=== PATIENT | female | born 1935 | race Caucasian/White ===

== ENCOUNTER 2016-02-10 04:55 | Observation (INO) | payer OTHER ==
[2016-02-10 05:30] LABS: AUTOMATED BASOPHIL 1.1 % (0-2); AUTOMATED EOSINOPHIL 2.2 % (0-5); AUTOMATED LYMPH 38.7 % (17-44); AUTOMATED MONOCYTE 12.3 % (3-10); AUTOMATED NEUTROPHIL 45.7 % (45-76); MPV 8.2 fL (7.4-10.4)
[2016-02-10 05:40] LABS: BLOOD UREA NITROGEN 13 MG/DL (7-17); CALC CORRECTED 9.4 MG/DL (8.4-10.2); CALCIUM 9.3 MG/DL (8.4-10.2); CALCULATED OSMOLALITY 268 MOs/Kg (270-290); CHLORIDE 104 mEq/L (98-107); GLUCOSE 89 MG/DL (70-99); SODIUM LEVEL 140 mEq/L (137-146); TOTAL PROTEIN 7.2 G/DL (6.3-8.2)
[2016-02-10 05:52] LABS: PARTIAL THROMB. TIME 28.5 SEC (22-35); PT-INR 1.2
--- NOTE | 2016-02-10 05:54 | DIRPT ---
CLINICAL DATA: Chest pain radiating to RIGHT arm, shortness of breath and palpitations. EXAM: PORTABLE CHEST 1 VIEW COMPARISON: Chest radiograph October 22, 2014 FINDINGS: Cardiomediastinal silhouette is normal, calcified aortic knob no pleural effusion or focal consolidation. Apical calcified pleural plaques. Increased lung volumes suggest COPD without pleural effusion or focal consolidation. Dual lead LEFT cardiac pacemaker in situ. Soft tissue planes and included osseous structures are nonsuspicious. IMPRESSION: No acute cardiopulmonary process. Electronically Signed By: Nidia Bruno M.D. On: 02/10/2016 05:51
[2016-02-10] MEDS ORDERED: Pharmacy Review for Metformin - IV Contrast Given SCH (06:00)
--- NOTE | 2016-02-10 06:30 | EDPRACDOC ---
- General Information Information Source: Patient Mode of Arrival: Car - History of Present Illness Onset: 2 DAYS Chest Pain Location: Reports: Substernal Pain Radiation: Reports: Back, Jaw, Shoulder (L), Arm (L), Other (LEFT LEG) Symptoms Occur: Reports: Gradually, At Rest, With light exertion Cardiac Risk Factors: Reports: Hyperlipidemia, Hypertension Cardiac History of: Reports: Similar Pain in Past, Stress Test (REMOTE). Denies : Cardiac Cath Pain Status: Resolved (NEARLY) Pain Description: Reports: Pressure, Heavy, Aching Pain Severity: Mild Pain Worsens With: Reports: Nothing Pain Improves With: Reports: Nothing Associated Signs and Symptoms: Reports: Other (PALPITATIONS.) <Aissatou Vasquez - Last Filed: 02/10/16 06:28> <Hamida Ellis - Last Filed: 02/10/16 07:53> - General Information Chief Complaint: Chest Pain Stated Complaint: CHEST PAIN/LT ARM/JAW PAIN Time Seen by Provider: 02/10/16 05:06 Home Medications: Home Medications Levothyroxine Sodium [Synthroid] 50 mcg PO DAILY 05/12/13 Rivaroxaban [Xarelto] 15 mg PO DAILYWM #30 tablet 12/10/13 Flecainide [Tambocor] 50 mg PO BID 10/23/14 Diltiazem HCl [Cartia Xt] 120 mg PO DAILY 02/10/16 Allergies/Adverse Reactions: Allergies Allergy/AdvReac Type Severity Reaction Status Date / Time simvastatin [From Zocor] Allergy Mild Dizziness Verified 02/10/16 05:42 azithromycin Allergy Itching Verified 02/10/16 05:42 ED Past Medical History - History Reviewed Yes Nurses notes reviewed and agree except as marked - Patient Medical History Neurological History: Reports: Cerebrovascular Accident Cardiac History: Reports: Atrial Fibrillation (paroxysmal), Hypertension, Stress Test (1 year ago- Dr. Smith's office), Hypercholesterolemia, Pacemaker. Denies: Cardiac Catheterization Psychological History: Denies: Depression, Substance Use Disorder Systemic History: Reports: Cancer (RIGHT BREAST 1989), Hypothyroidism Surgical History: Reports: Cholecystectomy, Hysterectomy, Tonsillectomy/ Adnoidectomy, Other (lumbar laminectomy) - Family Medical History Reports: Diabetes (sister- DM-II w/ PVD, [place]), Cancer (Mom- Liver cancer), Cardiac Disorders (Dad- [place], siter, brother - [place]) - Social Medical History Smoking Status: Never smoker Social History: Denies: Substance Use Disorder ETOH: None Substance Abuse: None Lives With: Alone Lives In: Home <Aissatou Vasquez - Last Filed: 02/10/16 06:28> EDM Review of Systems - Review of Systems ROS Negative Except as Marked: Yes All systems reviewed and were negative except as marked <Aissatou Vasquez - Last Filed: 02/10/16 06:28> - Physical Exam Constitutional: Alert (Awake), No apparent distress Oriented to: Time, Person, Place Last recorded Vital Signs: Last Vital Signs Temp 98 F 02/10/16 05:27 Pulse 76 02/10/16 06:15 Resp 20 02/10/16 06:15 BP 167/72 02/10/16 06:15 Pulse Ox 94 02/10/16 06:15 Oxygen Pulse Oxygen Saturation 94 O2 Device Room Air Oxygen Flow Rate Fraction of Inspired Oxygen ( FIO2) - HEENT Head: Normal ( normocephalic) Eye Exam: Normal (PERRL, EOMI, Sclera white) Oropharynx: Normal (Pharynx:Moist without exudate,Gums-no swelling) Nose: No Symptoms Reported (septum midline) Neck: Normal (FROM, trachea at midline) - Respiratory/Cardiovascular Respiratory: Normal - CTA (BBS clear to auscultation without adventitious sounds ) Cardiovascular: Normal (RRR without murmur, gallop or rub) - GI Auscultation: Normal (NABS) Palpation: Normal (Soft,No rebound or guarding, non distended) Tenderness: Non tender Mcmahon's Sign: Negative - Musculoskeletal Back: Normal (Non-Tender) Extremities: Normal (Normal tone, Pulses 2+ No cyanosis or edema, FROM) - Integumentary Skin: Normal, Warm, Dry Lymphatics: Normal (no adenopathy) - Neurologic Memory Impaired: Normal Motor Function: Normal (Normal tone, Pulses 2+ No cyanosis or edema, FROM) Cranial Nerve: Normal (CN II-X11 intact sensation, strength 5/5) Cerebellar: Normal Mood Description: Normal Perception: Normal <Aissatou Vasquez - Last Filed: 02/10/16 06:28> - Physical Exam Last recorded Vital Signs: Last Vital Signs Temp 98 F 02/10/16 05:27 Pulse 68 02/10/16 06:46 Resp 20 02/10/16 06:46 BP 158/68 02/10/16 06:46 Pulse Ox 96 02/10/16 06:46 Oxygen Pulse Oxygen Saturation 96 O2 Device Room Air Oxygen Flow Rate Fraction of Inspired Oxygen ( FIO2) <Hamida Ellis - Last Filed: 02/10/16 07:53> ED Chest Pain Exam - Respiratory/Cardiovascular Respiratory: Normal - CTA (clear to auscultation without adventitious sounds) Cardiovascular/Chest: Normal (RRR without murmur, gallop or rub) Radial Pulse: Normal Femoral Pulse: Normal Pedal Pulse: Normal Carotid Arteries: Normal Edema: 5. negative: 1+, 2+, 3+, 4+, 6 Chest Palpation: Normal (No chest tenderness) <Aissatou Vasquez N - Last Filed: 02/10/16 06:28> - Differential Diagnosis Angina, Aortic dissection, Myocardial infarction, Pericarditis - Action ASA given in the ED: No - Results 02/10/16 05:15 02/10/16 05:15 WBC 3.2 xk/uL (3.8-10.8) L 02/10/16 05:15 RBC 4.47 xM/uL (4.20-5.40) 02/10/16 05:15 Hgb 13.1 g/dL (12.0-16.0) 02/10/16 05:15 Hct 39.0 % (36-47) 02/10/16 05:15 MCV 87 fL (81-99) 02/10/16 05:15 MCH 29.4 pg (27-32) 02/10/16 05:15 MCHC 33.7 g/dl (33-36) 02/10/16 05:15 RDW 12.6 % (11.5-14.5) 02/10/16 05:15 Plt Count 164 xk/uL (130-400) 02/10/16 05:15 MPV 8.2 fL (7.4-10.4) 02/10/16 05:15 Neut % (Auto) 45.7 % (45-76) 02/10/16 05:15 Lymph % (Auto) 38.7 % (17-44) 02/10/16 05:15 Ferry % (Auto) 12.3 % (3-10) H 02/10/16 05:15 Eos % (Auto) 2.2 % (0-5) 02/10/16 05:15 Baso % (Auto) 1.1 % (0-2) 02/10/16 05:15 Absolute Neuts (auto) 1.44 xk/uL (1.7-8.2) L 02/10/16 05:15 Absolute Lymphs (auto) 1.22 xk/uL (0.65-4.75) 02/10/16 05:15 PT 11.9 SEC (9.2-11.2) H 02/10/16 05:15 INR 1.2 02/10/16 05:15 APTT 28.5 SEC (22-35) 02/10/16 05:15 Sodium 140 mEq/L (137-146) 02/10/16 05:15 Potassium 3.9 mEq/L (3.5-5.1) 02/10/16 05:15 Chloride 104 mEq/L (98-107) 02/10/16 05:15 Carbon Dioxide 25 mMOL/L (22-33) 02/10/16 05:15 Anion Gap 15 mEq/L (8-16) 02/10/16 05:15 BUN 13 MG/DL (7-17) 02/10/16 05:15 Creatinine 0.60 MG/DL (0.52-1.04) 02/10/16 05:15 Estimated GFR (MDRD) > 60 mL/min (>=60) 02/10/16 05:15 Glucose 89 MG/DL (70-99) 02/10/16 05:15 Calculated Osmolality 268 MOs/Kg (270-290) L 02/10/16 05:15 Calcium 9.3 MG/DL (8.4-10.2) 02/10/16 05:15 Corrected Calcium 9.4 MG/DL (8.4-10.2) 02/10/16 05:15 Total Bilirubin 0.5 MG/DL (0.2-1.3) 02/10/16 05:15 AST 36 IU/L (14-36) 02/10/16 05:15 ALT 35 IU/L (9-52) 02/10/16 05:15 Alkaline Phosphatase 116 IU/L (55-165) 02/10/16 05:15 Troponin I < 0.01 ng/mL (<.04) 02/10/16 05:15 Total Protein 7.2 G/DL (6.3-8.2) 02/10/16 05:15 Albumin 3.9 G/DL (3.5-5.0) 02/10/16 05:15 Lab Results 02/10/16 02/10/16 02/10/16 05:15 05:15 05:15 WBC 3.2 L RBC 4.47 Hgb 13.1 Hct 39.0 MCV 87 MCH 29.4 MCHC 33.7 RDW 12.6 Plt Count 164 MPV 8.2 Neut % (Auto) 45.7 Lymph % (Auto) 38.7 Ferry % (Auto) 12.3 H Eos % (Auto) 2.2 Baso % (Auto) 1.1 Absolute Neuts (auto) 1.44 L Absolute Lymphs (auto) 1.22 PT 11.9 H INR 1.2 APTT 28.5 Sodium 140 Potassium 3.9 Chloride 104 Carbon Dioxide 25 Anion Gap 15 BUN 13 Creatinine 0.60 Estimated GFR (MDRD) > 60 Glucose 89 Calculated Osmolality 268 L Calcium 9.3 Corrected Calcium 9.4 Total Bilirubin 0.5 AST 36 ALT 35 Alkaline Phosphatase 116 Troponin I < 0.01 Total Protein 7.2 Albumin 3.9 Laboratory Results - last 24 hr 02/10/16 02/10/16 02/10/16 05:15 05:15 05:15 WBC 3.2 L RBC 4.47 Hgb 13.1 Hct 39.0 MCV 87 MCH 29.4 MCHC 33.7 RDW 12.6 Plt Count 164 MPV 8.2 Neut % (Auto) 45.7 Lymph % (Auto) 38.7 Ferry % (Auto) 12.3 H Eos % (Auto) 2.2 Baso % (Auto) 1.1 Absolute Neuts (auto) 1.44 L Absolute Lymphs (auto) 1.22 PT 11.9 H INR 1.2 APTT 28.5 Sodium 140 Potassium 3.9 Chloride 104 Carbon Dioxide 25 Anion Gap 15 BUN 13 Creatinine 0.60 Estimated GFR (MDRD) > 60 Glucose 89 Calculated Osmolality 268 L Calcium 9.3 Corrected Calcium 9.4 Total Bilirubin 0.5 AST 36 ALT 35 Alkaline Phosphatase 116 Troponin I < 0.01 Total Protein 7.2 Albumin 3.9 Laboratory Results 02/10/16 05:15 02/10/16 05:15 - EKG EKG #1 EKG Time: 05:16 -: Yes EKG interpreted by me Rate: bpm: 73 [place]: Normal Rhythm: NSR Block: LBBB Hypertrophy: None ST: Nonsp Comparison: 10/22/14 (NO CHANGE) <Aissatou Vasquez - Last Filed: 02/10/16 06:28> - Results 02/10/16 05:15 02/10/16 05:15 WBC 3.2 xk/uL (3.8-10.8) L 02/10/16 05:15 RBC 4.47 xM/uL (4.20-5.40) 02/10/16 05:15 Hgb 13.1 g/dL (12.0-16.0) 02/10/16 05:15 Hct 39.0 % (36-47) 02/10/16 05:15 MCV 87 fL (81-99) 02/10/16 05:15 MCH 29.4 pg (27-32) 02/10/16 05:15 MCHC 33.7 g/dl (33-36) 02/10/16 05:15 RDW 12.6 % (11.5-14.5) 02/10/16 05:15 Plt Count 164 xk/uL (130-400) 02/10/16 05:15 MPV 8.2 fL (7.4-10.4) 02/10/16 05:15 Neut % (Auto) 45.7 % (45-76) 02/10/16 05:15 Lymph % (Auto) 38.7 % (17-44) 02/10/16 05:15 Ferry % (Auto) 12.3 % (3-10) H 02/10/16 05:15 Eos % (Auto) 2.2 % (0-5) 02/10/16 05:15 Baso % (Auto) 1.1 % (0-2) 02/10/16 05:15 Absolute Neuts (auto) 1.44 xk/uL (1.7-8.2) L 02/10/16 05:15 Absolute Lymphs (auto) 1.22 xk/uL (0.65-4.75) 02/10/16 05:15 PT 11.9 SEC (9.2-11.2) H 02/10/16 05:15 INR 1.2 02/10/16 05:15 APTT 28.5 SEC (22-35) 02/10/16 05:15 Sodium 140 mEq/L (137-146) 02/10/16 05:15 Potassium 3.9 mEq/L (3.5-5.1) 02/10/16 05:15 Chloride 104 mEq/L (98-107) 02/10/16 05:15 Carbon Dioxide 25 mMOL/L (22-33) 02/10/16 05:15 Anion Gap 15 mEq/L (8-16) 02/10/16 05:15 BUN 13 MG/DL (7-17) 02/10/16 05:15 Creatinine 0.60 MG/DL (0.52-1.04) 02/10/16 05:15 Estimated GFR (MDRD) > 60 mL/min (>=60) 02/10/16 05:15 Glucose 89 MG/DL (70-99) 02/10/16 05:15 Calculated Osmolality 268 MOs/Kg (270-290) L 02/10/16 05:15 Calcium 9.3 MG/DL (8.4-10.2) 02/10/16 05:15 Corrected Calcium 9.4 MG/DL (8.4-10.2) 02/10/16 05:15 Total Bilirubin 0.5 MG/DL (0.2-1.3) 02/10/16 05:15 AST 36 IU/L (14-36) 02/10/16 05:15 ALT 35 IU/L (9-52) 02/10/16 05:15 Alkaline Phosphatase 116 IU/L (55-165) 02/10/16 05:15 Troponin I < 0.01 ng/mL (<.04) 02/10/16 05:15 Total Protein 7.2 G/DL (6.3-8.2) 02/10/16 05:15 Albumin 3.9 G/DL (3.5-5.0) 02/10/16 05:15 Lab Results 02/10/16 02/10/16 02/10/16 05:15 05:15 05:15 WBC 3.2 L RBC 4.47 Hgb 13.1 Hct 39.0 MCV 87 MCH 29.4 MCHC 33.7 RDW 12.6 Plt Count 164 MPV 8.2 Neut % (Auto) 45.7 Lymph % (Auto) 38.7 Ferry % (Auto) 12.3 H Eos % (Auto) 2.2 Baso % (Auto) 1.1 Absolute Neuts (auto) 1.44 L Absolute Lymphs (auto) 1.22 PT 11.9 H INR 1.2 APTT 28.5 Sodium 140 Potassium 3.9 Chloride 104 Carbon Dioxide 25 Anion Gap 15 BUN 13 Creatinine 0.60 Estimated GFR (MDRD) > 60 Glucose 89 Calculated Osmolality 268 L Calcium 9.3 Corrected Calcium 9.4 Total Bilirubin 0.5 AST 36 ALT 35 Alkaline Phosphatase 116 Troponin I < 0.01 Total Protein 7.2 Albumin 3.9 Laboratory Results - last 24 hr 02/10/16 02/10/16 02/10/16 05:15 05:15 05:15 WBC 3.2 L RBC 4.47 Hgb 13.1 Hct 39.0 MCV 87 MCH 29.4 MCHC 33.7 RDW 12.6 Plt Count 164 MPV 8.2 Neut % (Auto) 45.7 Lymph % (Auto) 38.7 Ferry % (Auto) 12.3 H Eos % (Auto) 2.2 Baso % (Auto) 1.1 Absolute Neuts (auto) 1.44 L Absolute Lymphs (auto) 1.22 PT 11.9 H INR 1.2 APTT 28.5 Sodium 140 Potassium 3.9 Chloride 104 Carbon Dioxide 25 Anion Gap 15 BUN 13 Creatinine 0.60 Estimated GFR (MDRD) > 60 Glucose 89 Calculated Osmolality 268 L Calcium 9.3 Corrected Calcium 9.4 Total Bilirubin 0.5 AST 36 ALT 35 Alkaline Phosphatase 116 Troponin I < 0.01 Total Protein 7.2 Albumin 3.9 Laboratory Results 02/10/16 05:15 02/10/16 05:15 - Diagnostic Imaging Chest Image interpreted by: Radiologist CT CHEST/ABD/PELVIS: 1. Negative CT scan of the chest. Specifically, no evidence of aortic dissection. 2. No evidence of aortic dissection in the abdomen. 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 <Hamida Ellis - Last Filed: 02/10/16 07:53> <Aissatou Vasquez - Last Filed: 02/10/16 06:28> - Departure Yes I personally saw and evaluated the patient. Disposition: Admit IP To This Hospital Education/Counseling Given To: Patient Education/Counseling Given Regarding: Diagnosis, Treatment Decision to Admit Time: 07:53 Decision to admit date: 02/10/16 Decision to admit: from ED - Physician Consulted Hospitalist Provider Called: Dario Vilchis <Hamida Ellis - Last Filed: 02/10/16 07:53> - Departure Condition: Fair Final Diagnosis: ACS (acute coronary syndrome) Instructions: Chest Pain (ED) Referrals: Annette Steel MD [Primary Care Provider] - One Week
--- NOTE | 2016-02-10 07:18 | DIRPT ---
CLINICAL DATA: Chest pain. Back pain. Sudden onset pain in the groin. EXAM: CT ANGIOGRAPHY CHEST, ABDOMEN AND PELVIS TECHNIQUE: Multidetector CT imaging through the chest, abdomen and pelvis was performed using the standard protocol during bolus administration of intravenous contrast. Multiplanar reconstructed images and MIPs were obtained and reviewed to evaluate the vascular anatomy. CONTRAST: 100 cc Isovue 370 COMPARISON: None. FINDINGS: CTA CHEST FINDINGS There is no evidence of aortic dissection. Prior CABG. Calcifications in the thoracic aorta. Heart size is normal. Lungs are clear except for scarring at the lung apices. No hilar or mediastinal adenopathy. Review of the MIP images confirms the above findings. CTA ABDOMEN AND PELVIS FINDINGS There is aortic atherosclerosis extending into the iliac arteries. There is no dissection. No aneurysm. There is a slight narrowing of the origin of the celiac artery. SMA and FÁTIMA are patent. Single renal arteries bilaterally with slight narrowing at each origin. Hepato biliary: Gallbladder has been removed. There is a vascular malformation in the lateral segment of the left lobe of the liver. Pancreas: Normal. Spleen: Normal. Adrenals and urinary tract: Normal. Bowel: Normal. Reproductive: Uterus has been removed. Left ovary is normal. Right ovary is not identified and may have been removed. Musculoskeletal: Moderate right hip arthritis. Review of the MIP images confirms the above findings. IMPRESSION: 1. Negative CT scan of the chest. Specifically, no evidence of aortic dissection. 2. No evidence of aortic dissection in the abdomen. 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 Electronically Signed By: Elias Murray M.D. On: 02/10/2016 07:15
--- NOTE | 2016-02-10 08:00 | HISTPHYS ---
- Chief Complaint Chest pain - Medical History Cardiac History: Reports: Atrial Fibrillation (paroxysmal, sick sinus syndrome) , Hypertension, Stress Test (1 year ago- Dr. Smith's office), Hypercholesterolemia, Pacemaker, Other (left bundle branch block, history of bradycardia). Denies: Cardiac Catheterization Respiratory History: Reports: No Significant History GI/ History: Reports: No Significant History Musculoskeletal History: Reports: No Significant History Systemic History: Reports: Cancer (RIGHT BREAST 1990), Hypothyroidism Neurological History: Reports: Cerebrovascular Accident Psychological History: Reports: No Significant History. Denies: Depression, Substance Use Disorder - Surgical History Reports: Cholecystectomy, Hysterectomy, Tonsillectomy/Adnoidectomy, Other ( lumbar laminectomy). Denies: Cardiac Catheterization - Medictions/Allergies Allergies simvastatin [From Zocor] Allergy (Mild, Verified 02/10/16 05:42) Dizziness azithromycin Allergy (Verified 02/10/16 05:42) Itching Home Medications Levothyroxine Sodium [Synthroid] 50 mcg PO DAILY 05/12/13 Rivaroxaban [Xarelto] 15 mg PO DAILYWM #30 tablet 12/10/13 Flecainide [Tambocor] 50 mg PO BID 10/23/14 Diltiazem HCl [Cartia Xt] 120 mg PO DAILY 02/10/16 - Family History Reports: Diabetes (sister- DM-II w/ PVD, [place]), Cancer (Mom- Liver cancer), Cardiac Disorders (Dad- [place], siter, brother - [place]) - Social History Smoking Status: Never smoker Social History: Denies: Alcohol Use, Substance Use Disorder - Review of Systems Yes All systems reviewed and were negative except as marked Constitutional: No Symptoms Reported (No Fever, chills, wt loss/gain, diaphoresis,fatigue/malaise.). negative: Fever, Chills, Weakness, Fatigue, Loss of Appetite - Eyes No Symptoms Reported (No blurry vision, visual changes, eye pain, or eye redness.) - Ears No Symptoms Reported (No ear pain or discharge) - Nose No Symptoms Reported (No nasal discharge/congestion or bleeding) - Mouth Mouth: No Symptoms Reported (No oropharyngeal lesions or erythema) - Throat/Neck No Symptoms Reported (No throat pain or swelling.No oropharyngeal lesions or erythema.) - Respiratory No Symptoms Reported (No cough, wheezing, or shortness of breath.) - Cardiovascular Chest Pain, Palpitations - Gastrointestinal Gastrointestinal: No Symptoms Reported - Genitourinary Genitourinary: No Symptoms Reported - Neurological No Symptoms Reported (No headache, dizziness, seizures, or focal weakness.) - Musculoskeletal Musculoskeletal:: No Symptoms Reported - Integumentary No Symptoms Reported (no rashes or lesions) - Allergic/Immunologic No Symptoms Reported (no rashes or lesions) - Hematologic No Symptoms Reported (No chronic anemia, bleeding, or easy bruising.) - Endocrine No Symptoms Reported (No thyroid issues, polyuria, or polydipsia.) - Psychiatric No Symptoms Reported (Fully oriented, with normal and appropriate affect.) - Physical Exam Constitutional: Alert (Awake), No apparent distress Oriented to: Time, Person, Place Exam: Last Vital Signs Temp 98 F 02/10/16 05:27 Pulse 77 02/10/16 07:32 Resp 18 02/10/16 07:32 BP 163/88 02/10/16 07:32 Pulse Ox 96 02/10/16 07:32 Intake & Output 02/09/16 02/09/16 02/10/16 15:59 23:59 07:59 Patient's weight 126 lb - HEENT Head: Normal ( normocephalic) Eye: Normal (PERRL, EOMI, Sclera white) Oropharynx: Normal (Pharynx:Moist without exudate,Gums-no swelling) Tympanic Membrane: Normal (No discharge) ENT EAC: Normal (No oropharyngeal lesions or erythema. Mucous membranes are dry. ) TMJ: Normal Nose: No Symptoms Reported (septum midline) - Respiratory/Cardiovascular Respiratory: Normal - CTA (clear to auscultation without adventitious sounds) Cardiovascular: Normal (RRR , Normal S1, S2. No murmurs, rubs, or gallops. PMI non-displaced. Carotids: no carotid bruits. No bradycardia or tachycardia. DP pulses 2+ bilaterally.) - GI Auscultation: Normal (NABS) Palpation: Normal (Soft,No rebound or guarding, non distended) Tenderness: Non tender Mcmahon's Sign: Negative - Musculoskeletal Back: Normal (Non-Tender) Extremities: Normal (Normal tone, Pulses 2+ No cyanosis or edema, FROM) - Integumentary Skin: Normal, Warm, Dry Lymphatics: Normal (no adenopathy) - Neurologic Memory Impaired: Normal Motor Function: Normal (Motor 5/5 throughout. Normal tone, Pulses 2+ No cyanosis or edema, FROM) Cranial Nerve: Normal (CN II-XXII intact sensation, strength 5/5) Cerebellar: Normal Mood Description: Normal Perception: Normal - Focused CV Perfusion Exam Vital Signs: Last Vital Signs Temp 98 F 02/10/16 05:27 Pulse 77 02/10/16 07:32 Resp 18 02/10/16 07:32 BP 163/88 02/10/16 07:32 Pulse Ox 96 02/10/16 07:32 - Lab Results 02/10/16 05:15 02/10/16 05:15 Laboratory Tests 02/10/16 02/10/16 05:15 05:15 INR 1.2 Troponin I < 0.01 PORTABLE CHEST 1 VIEW No acute cardiopulmonary process. CT ANGIOGRAPHY CHEST, ABDOMEN AND PELVIS 1. Negative CT scan of the chest. Specifically, no evidence of aortic dissection. 2. No evidence of aortic dissection in the abdomen. 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 - Assessment (1) Chest pain R07.9 - CHEST PAIN, UNSPECIFIED Acute Qualifiers: Chest pain type: other chest pain Qualified Code(s): R07.89 - Other chest pain Symptoms are most consistent physical exam with costochondritis, at this time I am not going to start a nonsteroidal anti-inflammatory drugs anticoagulated at risk for bleeding. Clinically the symptoms have improved over time. Independently reviewed her myocardial perfusion study which to me shows no ischemia normal ejection fraction and attenuation. I will wait a call from the radiologist but I am going to discharge her from the hospital continue her anti rhythmic as well as her anticoagulant therapy and give her discharge diagnosis of costal chondritis. When I initially saw her with the elevated troponin as an outpatient I assume that she would be in the hospital for greater than 2 days and would require coronary arteriography. She has no indication of acute coronary syndrome. 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 If she has cardiac catheterization stent I would favor dual therapy with her anticoagulant and clopidogrel (6) Pacemaker Z95.0 - PRESENCE OF CARDIAC PACEMAKER Chronic Stable just evaluated our office optimally programmed. (7) Paroxysmal atrial fibrillation I48.0 - PAROXYSMAL ATRIAL FIBRILLATION Chronic Stable continue current anti rhythmic flecainide on lesser troponin becomes diagnostic, we have time to discontinue before the next scheduled dose. I will hold her Xarelto transiently which she requires long-term anticoagulation with her risk of previous stroke and chads 2 score of 5
[2016-02-10] MEDS ORDERED: NITROGLYCERINE 0.4 MG TAB SL PRN (08:06)
[2016-02-10] MEDS ORDERED: Aluminum;Magnesium;Simethicone 30 ML UDC PO PRN (08:09)
[2016-02-10] MEDS ORDERED: PROMETHAZINE 25 MG/ML VIAL IV PRN (08:09)
[2016-02-10] MEDS ORDERED: GUAIFEN 100 MG-DEXTROMETH 10 MG PER 5 ML PO PRN (08:09)
[2016-02-10] MEDS ORDERED: ONDANSETRON HCL 4 MG/2 ML VIAL IV PRN (08:09)
[2016-02-10] MEDS ORDERED: MAGNESIUM HYDROXIDE 30 ML BOTTLE PO PRN (08:09)
[2016-02-10] MEDS ORDERED: ACETAMINOPHEN 650 MG SUPP PR PRN (08:09)
[2016-02-10] MEDS ORDERED: BISACODYL 10 MG SUPP PR PRN (08:09)
[2016-02-10] MEDS ORDERED: TUSSIONEX 5 ML ORAL SYRINGE PO PRN (08:09)
[2016-02-10] MEDS ORDERED: ACETAMINOPHEN 325 MG/TAB TABLET PO PRN (08:09)
[2016-02-10 08:47] LABS: FREE T3 4.01 pg/mL (2.77-5.27); FREE T4 1.42 ng/dL (0.78-2.19)
[2016-02-10] MEDS ORDERED: Pharmacy Order Set Alert SCH (09:00)
[2016-02-10] MEDS ORDERED: DILTIAZEM HCL 120 MG CAPSULE.CR PO SCH ×2 (09:00→21:00)
[2016-02-10] MEDS ORDERED: FLECAINIDE 100 MG TAB PO SCH (09:00)
[2016-02-10 09:01] LABS: hTSH 3.6 uIU/mL (0.5-4.67)
[2016-02-10] MEDS: LEVOTHYROXINE 50 MCG (0.05 MG) TAB PO SCH (09:43)
[2016-02-10 11:41] VITALS: BMI 19.4
[2016-02-10] MEDS ORDERED: Vaccine Screening Complete SCH (17:00)
[2016-02-10] MEDS: FLECAINIDE 100 MG TAB PO SCH (21:28)
[2016-02-11 04:19] LABS: LDL (calc.) 131.6 MG/DL (<100); VLDL (calc.) 36.4 MG/DL (5-40)
[2016-02-11] MEDS ORDERED: REGADENOSON 0.4 MG/5 ML SYRINGE IV ONE (08:00)
[2016-02-11] MEDS ORDERED: SODIUM CHLORIDE 0.9% 10 ML FLUSH FLUSH ONE (08:00)
[2016-02-11] MEDS ORDERED: SESTAMIBI 8 MCI V IV ONE (11:19)
[2016-02-11 12:11] VITALS: BP 132/62; TEMP 98
--- NOTE | 2016-02-11 12:14 | PCM.STRESS ---
Nuclear stress test (Lexiscan): Indication for procedure: Chest pain. Patient was brought to the stress test room in a fasting state. IV was already inserted. The patient got connected to the flight tower dispatcher. Blood pressure was monitored as well as pulse oximetry. Lexiscan was given during in usual fashion. That was followed by injection of radioisotope. Then patient was monitored for about 5 min. Resting heart rate was 56 beats/ min. Resting blood pressure was 150/80 mm of mercury. Resting EKG showed normal sinus rhythm normal P interval left bundle branch block. EKG during the infusion of Lexiscan and shortly after showed similar QRS complex morphology. Symptoms noted during the infusion and after include mild nausea and shortness of breath. Nuclear assessment: Resting imaging showed moderate defect involving basal midportion of the inferior and inferior lateral wall. Stress imaging showed moderate defect involving basal and midportion of the inferior and inferior lateral wall. Gated imaging revealed normal contractility in all segments. The ejection fraction was 71%. Conclusions: 1. No ischemia seen on this scan. 2. Normal gated images. 3. Normal ejection fraction calculated to be of 71%. Comments: Fixed defect involving inferior as well as inferior lateral wall is probably related to diaphragmatic attenuation.
--- NOTE | 2016-02-11 12:18 | CAPUEKG ---
[place], [place] Test Date: 2016-02-10 Pat Name: OMAR KELLY Department: Room: 434 Gender: Female Spine Specialist: : Requested By: Order Number: Reading MD: Daniel Gil MD Measurements Intervals [place] Rate: 69 P: [place]: QRS: 10 QRSD: 134 T: 76 QT: 470 QTc: 503 Interpretive Statements Electronic atrial pacemaker Left bundle branch block Abnormal ECG Electronically Signed On 02-11-16 12:17:32 EST by Daniel Gil MD [id number] [id number]
[2016-02-11] MEDS: FLECAINIDE 100 MG TAB PO SCH (12:21)
[2016-02-11] MEDS: LEVOTHYROXINE 50 MCG (0.05 MG) TAB PO SCH (12:22)
--- NOTE | 2016-02-11 13:13 | PCM.DCS92 ---
- Final/Secondary Discharge Diagnosis (1) Atrial fibrillation, controlled Acute I48.91 - UNSPECIFIED ATRIAL FIBRILLATION Comment: Continue chronic anticoagulation with Xarelto. (2) Chest pain Acute R07.9 - CHEST PAIN, UNSPECIFIED other chest pain R07.89 - Other chest pain Comment: Patient was admitted to the hospital with chest pain. To rule out myocardial infarction. Chest pain order set was used. Is 3 troponins were negative, she had Lexiscan stress testing this morning which was unremarkable. (3) Chest pain Acute R07.9 - CHEST PAIN, UNSPECIFIED (4) Essential hypertension Acute I10 - ESSENTIAL (PRIMARY) HYPERTENSION Comment: Home medications continued. (5) Hypothyroidism (acquired) Acute E03.9 - HYPOTHYROIDISM, UNSPECIFIED Comment: continue Synthroid Discharge Disposition: Home Discharge Condition: Improved Cognitive Discharge Status: Unimpaired Fuctional Discharge Status: Independent Physician Follow up/Referrals: Annette Steel MD [Primary Care Provider] - Hospital to call w/ appt. O2 Device: Room Air Diet at Discharge: Cardiac Activity: No Restrictions - DC Summary Notes HPI/Notes: 80-year-old female admitted with chest pain. She had some complaints of palpitations, but no events were seen on the cardiac care nurse. She has recently just seen as an outpatient by Dr. Smith, given a clean [facility] [place]. She had cardiac Lexiscan stress testing this morning, with no evidence of ischemia. She is currently feeling slightly nauseous after contrast administration, but feels ready to discharge home this afternoon once her nausea has subsided. Hospital Course Note:: Discharge summary on patient named OMAR KELLY admitted to [facility] on 02/10/16 by Rikki Forte MD. Date of discharge is []. Total Time: 32 - Physical Exam Vital Signs: Last Vital Signs Temp 98.0 F 02/11/16 12:11 Pulse 76 02/11/16 12:11 Resp 18 02/11/16 12:11 BP 132/62 02/11/16 12:11 Pulse Ox 96 02/11/16 12:11 Oxygen Pulse Oxygen Saturation 96 O2 Device Room Air Oxygen Flow Rate Fraction of Inspired Oxygen ( FIO2) Constitutional: Alert (Awake), No apparent distress Oriented to: Time, Person, Place - HEENT Head: Normal ( normocephalic) Eye: Normal (PERRL, EOMI, Sclera white) Oropharynx: Normal (Pharynx:Moist without exudate,Gums-no swelling) Tympanic Membrane: Normal (No discharge) ENT EAC: Normal (No oropharyngeal lesions or erythema. Mucous membranes are dry. ) TMJ: Normal Nose: No Symptoms Reported (septum midline) - Respiratory/Cardiovascular Respiratory: Normal - CTA (clear to auscultation without adventitious sounds) Cardiovascular: Normal (RRR , Normal S1, S2. No murmurs, rubs, or gallops. PMI non-displaced. Carotids: no carotid bruits. No bradycardia or tachycardia. DP pulses 2+ bilaterally.) - GI Auscultation: Normal (NABS) Palpation: Normal (Soft,No rebound or guarding, non distended) Tenderness: Non tender Mcmahon's Sign: Negative - Musculoskeletal Back: Normal (Non-Tender) Extremities: Normal (Normal tone, Pulses 2+ No cyanosis or edema, FROM) - Integumentary Skin: Normal, Warm, Dry Lymphatics: Normal (no adenopathy) - Neurologic Memory Impaired: Normal Cerebellar: Normal Mood Description: Normal Perception: Normal
[2016-02-11 14:25] VITALS: PULSE 78
[2016-02-11] MEDS ORDERED: RIVAROXABAN 10 MG TAB PO SCH (18:00)
== END 2016-02-11 14:30 | disposition home or self-care (01) ==
LOC: ED 04:55 → EDINP 08:16 → PCU 10:55
PROVIDERS: ADMIT Hospitalist; ATTEND Internal Medicine
DX: I48.91 Unspecified atrial fibrillation (principal); Z79.01 Long term (current) use of anticoagulants; R07.89 Other chest pain; I10 Essential (primary) hypertension; Z95.0 Presence of cardiac pacemaker; E03.9 Hypothyroidism, unspecified; E78.5 Hyperlipidemia, unspecified; I69.30 Unspecified sequelae of cerebral infarction; E78.00 Pure hypercholesterolemia, unspecified; Z86.73 Personal history of transient ischemic attack (TIA), and cerebral infarction without residual deficits; Z79.899 Other long term (current) drug therapy
CPT/HCPCS: 36415; 71010; 71275; 74174; 78452; 80053; 80061; 82947; 84439; 84443; 84481; 84484; 85025; 85610; 85730; 93005; 93017; 99285; A4216; A9270; A9500; A9698; G0378; J2405; J2785; J3490